=== PATIENT | female | born 1995 | race Caucasian/White ===

== ENCOUNTER 2016-06-16 01:34 | Emergency (ER) | payer BC ==
[~2016-06-16] VITALS: Ht 165.1 cm; Wt 63.6 kg
[2016-06-16 01:37] VITALS: TEMP 98
[2016-06-16 02:23] VITALS: BP 122/86; PULSE 76
== END 2016-06-16 02:24 | disposition home or self-care (01) ==
LOC: COL.ER 01:34
DX: R07.9 Chest pain, unspecified (principal)

== ENCOUNTER → 2018-08-07 | Outpatient (CLI) | payer OTHER | LOC: COL.LAB 12:19 | DX: Z01.89 Encounter for other specified special examinations (principal) ==